=== PATIENT | female | born 1995 | race Caucasian/White ===

== ENCOUNTER 2017-01-18 12:31 | Emergency (ER) | payer OTHER | END 2017-01-18 13:27 | disposition home or self-care (01) | LOC: ED 12:31 | DX: O20.0 Threatened abortion (principal); O26.899 Other specified pregnancy related conditions, unspecified trimester; J45.909 Unspecified asthma, uncomplicated; O99.330 Smoking (tobacco) complicating pregnancy, unspecified trimester; F17.210 Nicotine dependence, cigarettes, uncomplicated; Z3A.00 Weeks of gestation of pregnancy not specified ==

== ENCOUNTER 2017-01-20 06:35 | Emergency (ER) | payer OTHER ==
[2017-01-20 07:40] LABS: ABSOLUTE NEUTROPHIL COUNT 5.5 K/mm3 (1.8-7.7); BASO % 0.5 % (0.2-1.0); EOS # 0.1 (0.0-0.5); EOS % 0.6 % (0.9-2.9); HEMATOCRIT 45.3 % (37.0-47.0); HEMOGLOBIN 14.9 gm/l (12.0-16.0); IMM NEUT% 0.4 % (0-1); LYMPH # 1.4 (1.0-4.8); LYMPH % 18.1 % (15-45); MEAN CELL VOLUME 92.4 fl (81.0-99.0); MEAN CORPUSCULAR HEMOGLOBIN 30.4 pg (27.0-31.0); MEAN CORPUSCULAR HGB CONC 32.9 g/dl (33.0-37.0); MEAN PLATELET VOLUME 8.5 fl (7.4-10.4); MONO # 0.7 (0.0-0.8); NEUT % 71.4 % (43-75); PLATELET COUNT 294 K/mm3 (130-400); RED CELL DISTRIBUTION WIDTH 11.8 % (11.5-14.5); URINE BILIRUBIN NEGATIVE (NEGATIVE); URINE BLOOD 4+ (NEGATIVE); URINE GLUCOSE (UA) NEGATIVE (NEGATIVE); URINE LEUKOCYTE ESTERASE NEGATIVE (NEGATIVE); URINE NITRITE NEGATIVE (NEGATIVE); URINE PROTEIN NEGATIVE (NEGATIVE); URINE UROBILINOGEN NORMAL (0-1 mg/dl)
[2017-01-20 07:43] LABS: URINE APPEARANCE CLEAR; URINE COLOR YELLOW
[2017-01-20 07:46] LABS: URINE BACTERIA 0; URINE EPITHELIAL CELLS FEW /hpf; URINE RBC 20-30 /hpf; URINE WBC NEG /hpf
[2017-01-20 07:56] LABS: AMPHETAMINES/METHAMPHETAMINES NEGATIVE (NEGATIVE); COCAINE NEGATIVE (NEGATIVE); MARIJUANA NEGATIVE (NEGATIVE); METHADONE NEGATIVE (NEGATIVE); OPIATES NEGATIVE (NEGATIVE); TRICYCLIC ANTIDEPRESSANTS NEGATIVE (NEGATIVE)
[2017-01-20 07:58] LABS: ALB/GLOB RATIO 1.4 (>1.0); ALBUMIN 4.2 gm/dL (3.5-5.7); CALCIUM 9.3 mg/dL (8.6-10.3)
[2017-01-20] MEDS ORDERED: MORPHINE SULFATE 4 MG/ML SYRINGE ONE (09:11)
--- NOTE | 2017-01-20 09:11 | US ---
OB ULTRASOUND LESS THAN 14 WEEKS HISTORY: Bleeding, , 11 weeks 1 day. Transabdominal and transvaginal obstetric ultrasound was performed. FINDINGS: INTRAUTERINE GESTATION: No intrauterine gestation. Complex hypoechoic fluid is identified at the lower uterine segment and endocervical canal. RIGHT OVARY: 2.9 x 2.6 x 1.3 cm. LEFT OVARY: 2.7 x 2.1 x 2.3 cm. FOCAL ADNEXAL LESIONS:None. OVARIAN BLOOD FLOW: Documented bilaterally. FREE FLUID: None. IMPRESSION: No intrauterine gestation identified. Complex fluid of the lower cervical canal and endocervical canal worrisome for ongoing . No dominant adnexal lesion or free fluid, ectopic not entirely excluded. Recommend follow-up against beta hCG values. Findings discussed with Dr. Briones of the Emergency Medicine clinical service on 01/20/2017 at 0907 hours.
== END 2017-01-20 09:39 | disposition home or self-care (01) ==
LOC: ED 06:35
DX: O03.9 Complete or unspecified spontaneous abortion without complication (principal); O99.511 Diseases of the respiratory system complicating pregnancy, first trimester; J45.909 Unspecified asthma, uncomplicated; O99.331 Smoking (tobacco) complicating pregnancy, first trimester; F17.210 Nicotine dependence, cigarettes, uncomplicated; Z3A.01 Less than 8 weeks gestation of pregnancy
CPT/HCPCS: 84702; 85025; 80305; 80053; 81001; 76817; 76801; 86901; 99284; 96374; 99283; J2270